=== PATIENT | female | born 1940 | race Caucasian/White ===

== ENCOUNTER 2017-02-08 07:01 | Day surgery (SDC) | payer MEDICARE, BC ==
[~2017-02-08 07:01] MED LIST: Lactated Ringers 1,000 ML IV SCH; Lidocaine 0.5% 50 ML SDV ONE; Lidocaine 1% 0 ML ONE; Lidocaine 1%/Sod Bicarbonate in NS 8.4% 1 ML Syringe PRN; Midazolam 1 MG/ML 2 ML SDV ONE; Propofol 200 MG/20 ML SDV ONE; Sodium Bicarbonate 8.4% 50 MEQ/50 ML SDV ONE; Sodium Chloride 0.9% 10 ML Syringe FLUSH PRN; fentaNYL 100 MCG/2 ML SDV ONE
[2017-02-08] MEDS ORDERED: Bupivacaine 0.25% 30 ML SDV ONE (07:19)
--- NOTE | 2017-02-08 07:19 | PCM.PREANE ---
Preanesthetic Assessment - Procedure Proposed Procedure: Right long A1 brady release - Anesthesia/Transfusion/Family Hx Anesthesia History: Prior Anesthesia Without Reaction Family History of Anesthesia Reaction: No Type of Transfusion Reactions: Reports: Unknown Intubation History: Unknown - Review of Systems General: No Symptoms Pulmonary: No Symptoms Cardiovascular: Palpitations Gastrointestinal: No Symptoms (Occasional GERD; no present symptoms) Neurological: Dizziness Other: Reports: None - Physical Assessment NPO Status Date: 02/07/17 NPO Status Time: 21:30 Pulse: 57 O2 Sat by Pulse Oximetry: 96 Respiratory Rate: 16 Blood Pressure: 127/67 Temperature: 36.3 C Height: 1.47 m Weight: 47.627 kg ASA Class: 1 Mental Status: Alert & Oriented x3 Airway Class: Mallampati = 1 Dentition: Reports: Dentures (Upper dentures) Thyro-Mental Finger Breadths: 3 Mouth Opening Finger Breadths: 3 ROM/Head Extension: Full Lungs: Clear to Auscultation, Normal Respiratory Effort Cardiovascular: Regular Rate, Regular Rhythm - Lab Values: Labs reviewed. - Imaging/EKG Impressions: EKG reviewed. - Allergies Allergies/Adverse Reactions: Allergies Allergy/AdvReac Type Severity Reaction Status Date / Time levofloxacin [From Levaquin] Allergy Hives Verified 02/07/17 14:45 amoxicillin AdvReac Dizziness Verified 02/07/17 14:45 indomethacin [From Indocin] AdvReac Diarrhea Verified 02/07/17 14:45 indomethacin sodium AdvReac Diarrhea Verified 02/07/17 14:45 [From Indocin] morphine AdvReac Nausea and Verified 02/07/17 14:45 Vomiting - Anesthesia Plan Pre-Op Medication Ordered: None - Acknowledgements Anesthesia Type Planned: ANGELICA (Patient requesting no additional sedation at this time.) Pt an Appropriate Candidate for the Planned Anesthesia: Yes Alternatives and Risks of Anesthesia Discussed w Pt/Guardian: Yes Pt/Guardian Understands and Agrees with Anesthesia Plan: Yes PreAnesthesia Questionnaire Other HEENT History: tear duct reconstruction x 2, upper denture, wears glasses Cardiovascular History: Reports: High Cholesterol, Other (See Below) Other Cardiovascular History: bradycardia Respiratory History: Reports: COPD Other Respiratory History: cough Gastrointestinal History: Reports: Gastritis, GERD, Other (See Below) Other Gastrointestinal History: 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 Other OB/BYN History: L breast lumpectomy Musculoskeletal History: Reports: Osteoarthritis, Osteoporosis Other Musculoskeletal History: degenerative joint disease, carpal tunnel syndrome, ganglion cyst removal Neurological History: Reports: None Psychiatric History: Reports: None Endocrine/Metabolic History: Reports: None Hematologic History: Reports: None Immunologic History: Reports: None Oncologic (Cancer) History: Reports: None Other Oncologic History: skin ca Dermatologic History: Reports: Other (See Below) Other Dermatologic History: seborrheic keratosis - Past Surgical History Head Surgeries/Procedures: Reports: None HEENT Surgical History: Reports: Adenoidectomy, Tonsillectomy Other HEENT Surgeries/Procedures: tear duct surgery x 2 Respiratory Surgical History: Reports: None GI Surgical History: Reports: Appendectomy Other GI Surgeries/Procedures: hemorrhoidectomy Other Female Surgeries/Procedures: breast lumpectomy Endocrine Surgical History: Reports: None Neurological Surgical History: Reports: None Musculoskeletal Surgical History: Reports: Hip Replacement, Other (See Below) Other Musculoskeletal Surgeries/Procedures:: trigger finger x5 - SUBSTANCE USE Smoking Status *Q: Former Smoker Second Hand Smoke Exposure: No Recreational Drug Use History: No - HOME MEDS Home Medications: Home Meds Acetaminophen [Tylenol Extra Strength] 500 mg PO Q6HR PRN 08/04/15 [History] Calcium Carbonate [Tums] 500 mg PO DAILY 08/04/15 [History] Cholecalciferol (Vitamin D3) [Vitamin D3] 2,000 unit PO DAILY 08/04/15 [History] Docusate Sodium [Colace] 100 mg PO DAILY 08/04/15 [History] Folic Acid 0.8 mg PO DAILY 08/04/15 [History] Multivitamin [Multivitamins] 1 each PO DAILY 08/04/15 [History] Omeprazole [Prilosec] 20 mg PO DAILY PRN 08/04/15 [History] Ubidecarenone [Coq-10] 100 mg PO DAILY 08/04/15 [History] - CURRENT (IN HOUSE) MEDS Current Meds: Current Medications Lactated Ringer's (Ringers, Lactated) 1,000 mls @ 125 mls/hr IV ASDIRECTED BERNA Stop: 02/08/17 23:00 Lidocaine/Sodium Bicarbonate (Buffered Lidocaine 1% In Ns 8.4%) 0.25 ml .XX ONETIME PRN PRN Reason: Prior to IV Start Stop: 02/08/17 18:00 Sodium Chloride (Saline Flush) 10 ml FLUSH ASDIRECTED PRN PRN Reason: Keep Vein Open Stop: 02/08/17 18:00 Discontinued Medications Fentanyl (Sublimaze) Confirm Administered Dose 100 mcg .ROUTE .STK-MED ONE Stop: 02/08/17 07:00 Lidocaine HCl (Xylocaine-Mpf 1%) Confirm Administered Dose 4 mls @ as directed .ROUTE .STK-MED ONE Stop: 02/08/17 07:00 Lidocaine HCl (Xylocaine-Mpf 0.5%) Confirm Administered Dose 50 ml .ROUTE .STK- MED ONE Stop: 02/08/17 06:47 Lidocaine HCl (Xylocaine-Mpf 0.5%) Confirm Administered Dose 50 ml .ROUTE .STK- MED ONE Stop: 02/08/17 07:00 Midazolam HCl (Versed 1 Mg/Ml) Confirm Administered Dose 2 mg .ROUTE .STK-MED ONE Stop: 02/08/17 06:47 Midazolam HCl (Versed 1 Mg/Ml) Confirm Administered Dose 2 mg .ROUTE .STK-MED ONE Stop: 02/08/17 07:00 Propofol (Diprivan 20 Ml) Confirm Administered Dose 200 mg .ROUTE .STK-MED ONE Stop: 02/08/17 07:00 Propofol (Diprivan 20 Ml) Confirm Administered Dose 200 mg .ROUTE .STK-MED ONE Stop: 02/08/17 07:00 Sodium Bicarbonate (Sodium Bicarbonate 8.4%) Confirm Administered Dose 50 meq .ROUTE .STK-MED ONE Stop: 02/08/17 06:47 Sodium Bicarbonate (Sodium Bicarbonate 8.4%) Confirm Administered Dose 50 meq .ROUTE .STK-MED ONE Stop: 02/08/17 07:00
[2017-02-08] MEDS ORDERED: ceFAZolin 1 GM Vial ONE (08:28)
[2017-02-08] MEDS: Betamethasone Acetate/Betamethasone Sod Phosphate 30 MG/5 ML MDV ONE ×2 (08:40→08:45)
--- NOTE | 2017-02-08 08:59 | PCM48HPAN ---
Post Anesthesia Note - EVALUATION WITHIN 48HRS OF ANESTHETIC Vital Signs in Normal Range: Yes Patient Participated in Evaluation: Yes Respiratory Function Stable: Yes Airway Patent: Yes Cardiovascular Function Stable: Yes Hydration Status Stable: Yes Pain Control Satisfactory: Yes Nausea and Vomiting Control Satisfactory: Yes Mental Status Recovered: Yes - COMMENTS/OBSERVATIONS Free Text/Narrative:: Patient states that she is comfortable.
[2017-02-08 09:08] VITALS: BP 155/85
--- NOTE | 2017-02-09 07:48 | OR ---
DATE OF OPERATION: 02/08/2017 SURGEON: Thaddeus Vu MD PREOPERATIVE DIAGNOSIS: 1. Right long finger stenosing tenosynovitis. 2. Right thumb metacarpophalangeal joint arthritis. POSTOPERATIVE DIAGNOSIS: 1. Right long finger stenosing tenosynovitis. 2. Right thumb metacarpophalangeal joint arthritis. OPERATION PERFORMED: 1. Right [place] finger A1 brady [place], [id number]. 2. Right thumb MP joint injection, . ASSOCIATE SALES: Myra Aj. ANESTHESIA: [place] block. COMPLICATIONS: None. ESTIMATED BLOOD LOSS: Minimal. INDICATIONS: Ms. Roca is a pleasant 76-year-old female who presents with a right long finger stenosing tenosynovitis and MP joint arthritis. She had failed all conservative measures and wished to proceed with surgery. DESCRIPTION OF PROCEDURE: The patient was brought to the operating room, underwent a [place] blockade. The right upper extremity was prepped and draped in the standard orthopedic fashion. Surgical pause performed, identifying the appropriate patient and appropriate extremity to be operated upon. Preoperative antibiotics were given. A longitudinal incision was made proximal to the MP joint on A1 brady of the long finger. Sharp dissection was carried down from the skin and subcutaneous tissue. Hemostasis was obtained. We identified the radial and ulnar neurovascular bundles and protected these throughout the case. We incised the A1 brady with a [place] blade, then released the tendon down to the level of the leading edge of the two and then proximally released the flexor tendon sheath. She had moderate synovitis present, this was debrided. We divided the palmar fascia fibers proximally as it appeared to be impinging on the tendon. Once this was released, we then asked the patient to move her finger. She no longer had the mechanical symptoms. We irrigated the wound thoroughly and closed the skin with 5-0 nylon. We then injected right thumb MP joint with a mixture of 1 mL of Celestone and 3 mL of 0.25% bupivacaine without epinephrine, injected about 1.5 mL into the joint without difficulty. The patient was brought to the recovery room in satisfactory condition. MMLEXII /[id number]
== END 2017-02-08 09:25 | disposition home or self-care (01) ==
LOC: JD.SDS 07:01
PROVIDERS: ATTEND Orthopaedic Surgery
DX: M65.841 Other synovitis and tenosynovitis, right hand (principal); M18.11 Unilateral primary osteoarthritis of first carpometacarpal joint, right hand; M65.331 Trigger finger, right middle finger; M81.0 Age-related osteoporosis without current pathological fracture; J44.9 Chronic obstructive pulmonary disease, unspecified; K21.9 Gastro-esophageal reflux disease without esophagitis; Z79.899 Other long term (current) drug therapy; Z88.0 Allergy status to penicillin; Z88.1 Allergy status to other antibiotic agents; Z88.5 Allergy status to narcotic agent; Z88.6 Allergy status to analgesic agent; Z96.649 Presence of unspecified artificial hip joint; Z90.89 Acquired absence of other organs; Z98.890 Other specified postprocedural states; Z87.891 Personal history of nicotine dependence
CPT/HCPCS: 20600; 26055; J0690; J0702; J3490; J7120; 01810; J2250; J2704; J3010

== ENCOUNTER 2018-06-06 06:58 | Day surgery (SDC) | payer MEDICARE, BC ==
[~2018-06-06 06:58] MED LIST changes: -Lidocaine 0.5% 50 ML SDV ONE; -Lidocaine 1% 0 ML ONE; +Lidocaine 1%/Sod Bicarbonate in NS 8.4% 1 ML Syringe IDERM PRN; -Lidocaine 1%/Sod Bicarbonate in NS 8.4% 1 ML Syringe PRN; -Midazolam 1 MG/ML 2 ML SDV ONE; -Propofol 200 MG/20 ML SDV ONE; -Sodium Bicarbonate 8.4% 50 MEQ/50 ML SDV ONE; -fentaNYL 100 MCG/2 ML SDV ONE
[2018-06-06] MEDS ORDERED: Sodium Bicarbonate 8.4% 50 MEQ/50 ML SDV ONE (08:27)
[2018-06-06] MEDS ORDERED: Lidocaine 0.5% 50 ML SDV ONE (08:27)
[2018-06-06] MEDS ORDERED: ceFAZolin 1 GM Vial ONE (08:28)
[2018-06-06] MEDS ORDERED: diphenhydrAMINE 50 MG/ML SDV ONE (08:45)
--- NOTE | 2018-06-06 09:24 | PCM.PREANE ---
Preanesthetic Assessment - Procedure Proposed Procedure: left middle finger trigger release - Anesthesia/Transfusion/Family Hx Anesthesia History: Prior Anesthesia Without Reaction Family History of Anesthesia Reaction: No Type of Transfusion Reactions: Reports: Unknown Intubation History: Unknown - Review of Systems General: No Symptoms Pulmonary: No Symptoms Cardiovascular: No Symptoms Gastrointestinal: No Symptoms Neurological: No Symptoms Other: Reports: Neck Pain, Depression - Physical Assessment NPO Status Date: 06/05/18 NPO Status Time: 22:00 O2 Sat by Pulse Oximetry: 95 Respiratory Rate: 16 Vital Signs: Last Vital Signs Temp 97.5 F 06/06/18 07:10 Pulse 61 06/06/18 07:10 Resp 16 06/06/18 07:10 BP 120/73 06/06/18 07:10 Pulse Ox 95 06/06/18 07:10 Height: 4 ft 10 in Weight: 44.906 kg ASA Class: 2 Mental Status: Alert & Oriented x3 Airway Class: Mallampati = 1 Dentition: Reports: Dentures (upper) Thyro-Mental Finger Breadths: 3 Mouth Opening Finger Breadths: 3 ROM/Head Extension: Full Lungs: Clear to Auscultation, Normal Respiratory Effort Cardiovascular: Regular Rate, Regular Rhythm - Lab Values: Laboratory Last Values MRSA (PCR) Positive H 06/06/18 07:20 - Allergies Allergies/Adverse Reactions: Allergies Allergy/AdvReac Type Severity Reaction Status Date / Time levofloxacin [From Levaquin] Allergy Hives Verified 02/07/17 14:45 amoxicillin AdvReac Dizziness Verified 02/07/17 14:45 indomethacin [From Indocin] AdvReac Diarrhea Verified 02/07/17 14:45 indomethacin sodium AdvReac Diarrhea Verified 02/07/17 14:45 [From Indocin] morphine AdvReac Nausea and Verified 02/07/17 14:45 Vomiting - Blood Blood Available: No - Acknowledgements Anesthesia Type Planned: ANGELICA Pt an Appropriate Candidate for the Planned Anesthesia: Yes Alternatives and Risks of Anesthesia Discussed w Pt/Guardian: Yes Pt/Guardian Understands and Agrees with Anesthesia Plan: Yes PreAnesthesia Questionnaire HEENT History: Reports: Cataract Other HEENT History: tear duct reconstruction x 2, upper denture, wears glasses Cardiovascular History: Reports: High Cholesterol, Hypertension, Other (See Below) Other Cardiovascular History: bradycardia Respiratory History: Reports: COPD Other Respiratory History: cough Gastrointestinal History: Reports: Gastritis, GERD, Other (See Below) Other Gastrointestinal History: 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 Genitourinary History: Reports: None Other OB/BYN History: L breast lumpectomy Musculoskeletal History: Reports: Osteoarthritis, Osteoporosis Other Musculoskeletal History: degenerative joint disease, carpal tunnel syndrome, ganglion cyst removal Neurological History: Reports: None Psychiatric History: Reports: Depression Endocrine/Metabolic History: Reports: None Hematologic History: Reports: None Immunologic History: Reports: None Oncologic (Cancer) History: Reports: None Other Oncologic History: skin ca Dermatologic History: Reports: Other (See Below) Other Dermatologic History: seborrheic keratosis - Past Surgical History Head Surgeries/Procedures: Reports: None HEENT Surgical History: Reports: Adenoidectomy, Tonsillectomy Other HEENT Surgeries/Procedures: tear duct surgery x 2 Cardiovascular Surgical History: Reports: None Respiratory Surgical History: Reports: None GI Surgical History: Reports: Appendectomy Other GI Surgeries/Procedures: hemorrhoidectomy Female Surgical History: Reports: None Other Female Surgeries/Procedures: breast lumpectomy Endocrine Surgical History: Reports: None Neurological Surgical History: Reports: None Musculoskeletal Surgical History: Reports: Hip Replacement, Other (See Below) Other Musculoskeletal Surgeries/Procedures:: trigger finger x6 Oncologic Surgical History: Reports: None - SUBSTANCE USE Smoking Status *Q: Former Smoker (quit 2009) Tobacco Use Within Last Twelve Months: No Second Hand Smoke Exposure: No Days Per Week of Alcohol Use: 0 Recreational Drug Use History: No - HOME MEDS Home Medications: Home Meds Acetaminophen [Tylenol Extra Strength] 500 mg PO Q6HR PRN 08/04/15 [History] Calcium Carbonate [Tums] 500 mg PO DAILY 08/04/15 [History] Cholecalciferol (Vitamin D3) [Vitamin D3] 2,000 unit PO DAILY 08/04/15 [History] Docusate Sodium [Colace] 100 mg PO DAILY 08/04/15 [History] Folic Acid 0.8 mg PO DAILY 08/04/15 [History] Multivitamin [Multivitamins] 1 each PO DAILY 08/04/15 [History] Omeprazole [Prilosec] 20 mg PO DAILY PRN 08/04/15 [History] Ubidecarenone [Coq-10] 100 mg PO DAILY 08/04/15 [History] FLUoxetine [PROzac] 10 mg PO DAILY 06/06/18 [History] Hydrochlorothiazide/Losartan [Hyzaar 50-12.5 MG] 1 tab PO DAILY 06/06/18 [ History] - CURRENT (IN HOUSE) MEDS Current Meds: Current Medications Lidocaine/Sodium Bicarbonate (Buffered Lidocaine 1% In Ns 8.4%) 0.25 ml IDERM ONETIME PRN PRN Reason: Prior to IV Start Stop: 06/06/18 18:00 Sodium Chloride (Saline Flush) 10 ml FLUSH ASDIRECTED PRN PRN Reason: Keep Vein Open Stop: 06/06/18 18:00 Discontinued Medications Cefazolin Sodium (Ancef) Confirm Administered Dose 2 gm .ROUTE .STK-MED ONE Stop: 06/06/18 08:29 Diphenhydramine HCl (Benadryl) Confirm Administered Dose 50 mg .ROUTE .STK-MED ONE Stop: 06/06/18 08:46 Lactated Ringer's (Ringers, Lactated) 1,000 mls @ 125 mls/hr IV ASDIRECTED BERNA Stop: 06/06/18 00:02 Lidocaine HCl (Xylocaine-Mpf 0.5%) Confirm Administered Dose 50 ml .ROUTE .STK- MED ONE Stop: 06/06/18 08:28 Sodium Bicarbonate (Sodium Bicarbonate 8.4%) Confirm Administered Dose 50 meq .ROUTE .STK-MED ONE Stop: 06/06/18 08:28
[2018-06-06] MEDS ORDERED: Bupivacaine 0.25% 10 ML SDV ONE (10:09)
[2018-06-06] MEDS ORDERED: Betamethasone Acetate/Betamethasone Sod Phosphate 30 MG/5 ML MDV ONE (10:09)
[2018-06-06] MEDS ORDERED: Midazolam 1 MG/ML 2 ML SDV ONE (10:32)
[2018-06-06] MEDS ORDERED: fentaNYL 100 MCG/2 ML SDV IVPUSH PRN (10:53)
[2018-06-06] MEDS ORDERED: Ondansetron 4 MG/2 ML SDV IVPUSH PRN (10:53)
[2018-06-06 11:19] VITALS: BP 146/60
--- NOTE | 2018-06-06 11:19 | PCM48HPAN ---
Post Anesthesia Note - EVALUATION WITHIN 48HRS OF ANESTHETIC Vital Signs in Normal Range: Yes Patient Participated in Evaluation: Yes Respiratory Function Stable: Yes Airway Patent: Yes Cardiovascular Function Stable: Yes Hydration Status Stable: Yes Pain Control Satisfactory: Yes Nausea and Vomiting Control Satisfactory: Yes Mental Status Recovered: Yes Pulse Rate: 57 SaO2: 95 Resp Rate: 16 Temperature: 97.7 F Blood Pressure: 146/60
--- NOTE | 2018-06-18 08:07 | OR ---
DATE OF OPERATION: 06/06/2018 SURGEON: Thaddeus Vu MD PREOPERATIVE DIAGNOSIS: Left long finger stenosing tenosynovitis, M65.332. POSTOPERATIVE DIAGNOSIS: Left long finger stenosing tenosynovitis, M65.332. OPERATION PERFORMED: Left long finger A1 brady release, [id number]. INSIDE STEWARD/STEWARDESS: Demi Sutton RN ANESTHESIA: [place] block monitored anesthesia care. COMPLICATIONS: None known. INDICATIONS: The patient is a pleasant 77-year-old female, well known to me. 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 After discussing the risks, benefits, and alternatives as well as conservative as well as surgical treatment, the patient verbalized understanding and wished to proceed with surgery. DESCRIPTION OF PROCEDURE: The patient was brought to the operating room, underwent a [place] blockade. Left upper extremity was prepped and draped in a standard orthopedic fashion. Surgical pause was performed identifying the appropriate patient and appropriate extremity to be operated upon. Preoperative antibiotics were given. A longitudinal incision was made over the MP joint of the long finger along the distal palmar crease. Sharp dissection was carried down through the skin and subcutaneous tissue. Hemostasis was obtained. Dissected down, identified both radial and ulnar neurovascular bundles, these were mobilized and protected. We incised the A1 brady and released the flexor tendon sheath proximally. She had hypertrophic palmar fascial fibers proximally, which were also divided. Distally, released the A1 brady up to the level just past the cruciate brady into the proximal portion of A2. She had significant synovitis with significant fluid of both the FDP and FDS tendons. FDP and FDS tendons. The wound was subsequently irrigated and closed the skin with 5-0 nylon. She was brought to the recovery room in satisfactory condition. ESTIMATED BLOOD LOSS: MMODAL /[id number]
== END 2018-06-06 11:47 | disposition home or self-care (01) ==
LOC: JD.SDS 06:58
PROVIDERS: ATTEND Orthopaedic Surgery
DX: M65.842 Other synovitis and tenosynovitis, left hand (principal); M65.332 Trigger finger, left middle finger; I10 Essential (primary) hypertension; J44.9 Chronic obstructive pulmonary disease, unspecified; K21.9 Gastro-esophageal reflux disease without esophagitis; Z87.891 Personal history of nicotine dependence; Z79.899 Other long term (current) drug therapy; Z88.6 Allergy status to analgesic agent; Z88.1 Allergy status to other antibiotic agents; Z88.5 Allergy status to narcotic agent
CPT/HCPCS: 01810; 87641; J0690; J0702; J1200; J2250; J3370; J3490; J7050; J7120

== ENCOUNTER 2022-03-22 14:43 | Emergency (ER) | payer MEDICARE, BC ==
[2022-03-22 18:19] VITALS: BP 135/78; PULSE 68
== END 2022-03-22 18:00 | disposition home or self-care (01) ==
LOC: JD.ED 14:43
DX: S02.32XA Fracture of orbital floor, left side, initial encounter for closed fracture (principal); S02.40DA Maxillary fracture, left side, initial encounter for closed fracture; J44.9 Chronic obstructive pulmonary disease, unspecified; I10 Essential (primary) hypertension; Z88.6 Allergy status to analgesic agent; Z88.1 Allergy status to other antibiotic agents; Z88.8 Allergy status to other drugs, medicaments and biological substances; Z79.899 Other long term (current) drug therapy; Z90.49 Acquired absence of other specified parts of digestive tract; W01.198A Fall on same level from slipping, tripping and stumbling with subsequent striking against other object, initial encounter
CPT/HCPCS: 70450; 70450-26; 70486; 70486-26; 99283

== ENCOUNTER 2022-04-01 19:27 | Emergency (ER) | payer MEDICARE, BC ==
[2022-04-01 23:47] VITALS: BP 135/79; PULSE 88
== END 2022-04-01 23:23 | disposition home or self-care (01) ==
LOC: JD.ED 19:27
DX: H53.462 Homonymous bilateral field defects, left side (principal); H53.19 Other subjective visual disturbances; I10 Essential (primary) hypertension; K21.9 Gastro-esophageal reflux disease without esophagitis; M19.90 Unspecified osteoarthritis, unspecified site; Z87.891 Personal history of nicotine dependence; Z88.8 Allergy status to other drugs, medicaments and biological substances; Z88.6 Allergy status to analgesic agent; Z88.0 Allergy status to penicillin; Z88.5 Allergy status to narcotic agent; Z79.899 Other long term (current) drug therapy
CPT/HCPCS: 70450; 70450-26; 99283

== ENCOUNTER 2023-11-15 09:24 | Emergency (ER) | payer MEDICARE, BC ==
[2023-11-15] MEDS: Sodium Chloride 0.9% 1,000 ML IV ONE (09:56)
[2023-11-15] MEDS: Acetaminophen 325 MG Tab PO ONE (09:56)
[2023-11-15 10:23] LABS: BASOPHILS PERCENT AUTO 0.1 % (0.0-1.0); EOSINOPHILS ABSOLUTE AUTO 0.1 K/mm3 (0.0-0.4); HEMATOCRIT 45.1 % (37.0-47.0); HEMOGLOBIN 15.9 gm/dl (12.0-16.0); IMMATURE GRAN ABSOLUTE AUTO 0.03 K/mm3 (0.00-0.05); IMMATURE GRAN PERCENT AUTO 0.3 % (0.0-0.4); LYMPHOCYTES ABSOLUTE AUTO 1.6 K/mm3 (1.0-4.8); LYMPHOCYTES PERCENT AUTO 17.8 % (24.0-44.0); MEAN CORPUSCULAR HEMOGLOBIN 31.4 pg (28.0-32.0); MEAN CORPUSCULAR HGB CONC 35.3 g/dl (32.0-36.0); MEAN CORPUSCULAR VOLUME 89.1 fl (83.0-99.0); MEAN PLATELET VOLUME 9.7 fl (9.4-12.3); MONOCYTES ABSOLUTE AUTO 1.3 K/mm3 (0.0-0.8); NEUTROPHILS ABSOLUTE AUTO 5.9 K/mm3 (1.8-7.7); NEUTROPHILS PERCENT AUTO 65.8 % (41.0-71.0); PLATELET COUNT,PLT 210 K/mm3 (150-400); RED BLOOD CELL COUNT 5.06 M/mm3 (4.10-5.30); WHITE BLOOD CELL COUNT,WBC 8.89 K/mm3 (3.9-11.3)
[2023-11-15 10:38] LABS: A/G RATIO 0.8 (1-2); ALBUMIN 3.4 g/dl (3.4-5.0); ANION GAP 15.8 (5-15); BUN/CREATININE RATIO 17.5 (14-18); CALCIUM 9.4 mg/dL (8.5-10.1); CREATININE 0.8 mg/dL (0.55-1.02); EST CRCL DRUG DOSING (CG) 39.61 mL/min; POTASSIUM,K 3.8 mEq/L (3.5-5.1); PROTEIN TOTAL,TP 7.5 g/dl (6.4-8.2)
[2023-11-15 11:24] LABS: APPEARANCE,URINE CLEAR (Clear); BILIRUBIN,URINE NEGATIVE (Negative); COLOR,URINE YELLOW (Yellow); GLUCOSE,URINE NEGATIVE (Negative); KETONES,URINE 2+ (Negative); LEUKOCYTE ESTERASE,URINE NEGATIVE (Negative); NITRITE,URINE NEGATIVE (Negative); OCCULT BLOOD,URINE NEGATIVE (Negative); PH,URINE 6.5 (5.0-8.0); PROTEIN,URINE NEGATIVE (Negative)
[2023-11-15 12:39] VITALS: BP 155/71; PULSE 81
== END 2023-11-15 12:38 | disposition home or self-care (01) ==
LOC: JD.ED 09:24
DX: R52 Pain, unspecified (principal); I10 Essential (primary) hypertension; J44.9 Chronic obstructive pulmonary disease, unspecified; Z86.16 Personal history of COVID-19; Z88.0 Allergy status to penicillin; Z88.5 Allergy status to narcotic agent; Z88.6 Allergy status to analgesic agent; Z88.1 Allergy status to other antibiotic agents
CPT/HCPCS: 36415; 80053; 81003; 85025; 96360; 99284; A9270; J7030; 99283

== ENCOUNTER 2023-11-17 07:30 | Emergency (ER) | payer MEDICARE, BC ==
[2023-11-17] MEDS: Cyclobenzaprine 10 MG Tab PO ONE (08:20)
[2023-11-17 11:58] VITALS: BP 144/78; PULSE 68
== END 2023-11-17 10:24 | disposition home or self-care (01) ==
LOC: JD.ED 07:30
DX: M47.812 Spondylosis without myelopathy or radiculopathy, cervical region (principal); I10 Essential (primary) hypertension; Z86.16 Personal history of COVID-19; Z90.49 Acquired absence of other specified parts of digestive tract; Z79.899 Other long term (current) drug therapy; Z88.0 Allergy status to penicillin; Z88.8 Allergy status to other drugs, medicaments and biological substances; Z88.5 Allergy status to narcotic agent
CPT/HCPCS: 72040; 99283; A9270